=== PATIENT | female | born 1965 | race Two or more races ===

== ENCOUNTER → 2017-01-30 17:04 | Emergency (ER) | payer MEDICAID | END | disposition left against medical advice (07) | LOC: D.ER 17:04 | DX: Z02.9 Encounter for administrative examinations, unspecified (principal) ==

== ENCOUNTER → 2017-05-14 10:34 | Outpatient (CLI) | payer OTHER | END | disposition home or self-care (01) | LOC: D.RAD 10:30 | DX: Z02.71 Encounter for disability determination (principal) ==